=== PATIENT | female | born 1990 | race Caucasian/White ===

== ENCOUNTER 2020-01-17 12:30 | Emergency (ER) | payer MEDICAID ==
[~2020-01-17] VITALS: Ht 167.6 cm; Wt 72.6 kg
[2020-01-17 12:45] VITALS: BP_SYST 124
[2020-01-17] MEDS ORDERED: IBUPROFEN 600 MG TABLET PO ONE (12:45)
[2020-01-17] MEDS ORDERED: cefTRIAXone 1 GM in LIDOCAINE 1%, 20 ML MDV 2.1 ML IM ONE (13:00)
[2020-01-17 13:11] VITALS: BP_SYST 124
[2020-01-17 13:38] LABS: BILIRUBIN,URINE 1+ (NEGATIVE); BLOOD, URINE 1+ (NEGATIVE); CLARITY/URINE SL CLOUDY (CLEAR); COLOR,URINE YELLOW (YELLOW); GLUCOSE,URINE NEGATIVE (NEGATIVE); KETONES,URINE TRACE (NEGATIVE); LEUKOCYTE ESTERASE ,URINE 1+ (NEGATIVE); NITRITE, URINE POSITIVE (NEGATIVE); PH,URINE 6.5 (5.0-8.0); PROTEIN URINE 1+ (NEGATIVE)
[2020-01-17 13:54] LABS: BACTERIA,URINE FEW /HPF (None Seen); WBC,URINE 20-50 /HPF (0-3)
== END 2020-01-17 13:11 | disposition home or self-care (01) ==
LOC: SED 12:30
DX: N39.0 Urinary tract infection, site not specified (principal)
CPT/HCPCS: 81000; 81025; 87086; 87186; 96372; 99283; J0696; J2001

== ENCOUNTER 2020-05-26 08:32 | Emergency (ER) | payer MEDICAID ==
[~2020-05-26] VITALS: Ht 165.1 cm; Wt 99.8 kg
[2020-05-26 09:11] VITALS: BP_SYST 116
[2020-05-26] MEDS ORDERED: MAG-AL HYDROX/SIMETH 30 ML UDC PO ONE (09:30)
[2020-05-26 10:04] LABS: ALBUMIN 3.6 g/dL (3.4-4.8); CALCIUM 8.5 mg/dL (8.4-11.0); CREATININE 0.71 mg/dL (0.55-1.30); POTASSIUM 3.8 mmol/L (3.5-5.1); TOTAL BILIRUBIN 0.4 mg/dL (0.0-1.0)
[2020-05-26 10:05] LABS: BASOPHILS # (AUTO) 0.1 K/uL (0.0-0.2); BASOPHILS % (AUTO) 0.8 % (0.0-2.0); EOSINOPHILS % (AUTO) 0.2 % (0.0-4.0); HEMATOCRIT 38.9 % (36-48); HEMOGLOBIN 12.8 g/dL (12.0-16.0); LYMPHOCYTES # (AUTO) 2.1 K/uL (1.0-5.5); LYMPHOCYTES % (AUTO) 26.1 % (20.5-51.5); MEAN CORPUSCULAR HEMOGLOBIN 29 pg (27-31); MEAN CORPUSCULAR HGB CONC 33 % (32-36); MEAN CORPUSCULAR VOLUME 88 fL (79.0-98.0); MONOCYTES # (AUTO) 0.5 K/uL (0.0-1.0); MONOCYTES % (AUTO) 6.3 % (1.7-9.3); NEUTROPHILS # (AUTO) 5.4 K/uL (1.8-7.7); NEUTROPHILS % (AUTO) 66.6 % (40.0-70.0); PLATELET COUNT (AUTO) 355 K/uL (130-430); RED BLOOD CELL COUNT(AUTO) 4.44 MIL/uL (4.2-6.2); RED CELL DISTRIBUTION WIDTH 13.5 % (9.0-15.0); WHITE BLOOD COUNT (AUTO) 8.1 K/uL (4.8-10.8)
[2020-05-26 12:13] VITALS: BP_SYST 116
== END 2020-05-26 12:14 | disposition home or self-care (01) ==
LOC: SED 08:32
DX: R10.13 Epigastric pain (principal)
CPT/HCPCS: 36415; 80053; 81002; 81025; 83690-TC; 85025; 99283